=== PATIENT | female | born 1980 | race African-American/Black ===

== ENCOUNTER 2020-07-09 01:29 | Emergency (ER) | payer OTHER, BC ==
[~2020-07-09] VITALS: Ht 170.2 cm; Wt 88.2 kg
[~2020-07-09 01:29] MED LIST: DOXY-CAPS100 MG PO
[2020-07-09 05:10] VITALS: BP 126/80
== END 2020-07-09 05:10 | disposition home or self-care (01) | DRG 563 ==
LOC: ED 01:29
DX: S39.012A Strain of muscle, fascia and tendon of lower back, initial encounter (principal); S40.021A Contusion of right upper arm, initial encounter; V47.6XXA Car passenger injured in collision with fixed or stationary object in traffic accident, initial encounter

== ENCOUNTER 2021-04-17 07:13 | Emergency (ER) | payer BC ==
[~2021-04-17] VITALS: Ht 170.2 cm; Wt 80.0 kg
[2021-04-17 08:04] LABS: IMMATURE GRANULOCYTES 0.1 % (0.0-5.0); MEAN CELL VOLUME 84.1 fL CALC (80.0-100.0); MEAN CORPUSCULAR HGB 26.8 pG CALC (26.0-32.0); MEAN CORPUSCULAR HGB CONC 31.9 g/dL CAL (32.0-36.0); NEUT# 4.37 thou/uL (2.00-7.15); RED BLOOD COUNT 4.47 mill/uL (4.20-5.60); RED CELL DISTRI WIDTH 14.3 % (11.5-15.5)
[2021-04-17 08:05] LABS: HEMATOCRIT 37.6 % (37.0-47.0)
[2021-04-17 08:24] LABS: ANION GAP 12 (6-22 (CALC)); BUN 7 mg/dL (7-17); BUN/CREATININE RATIO 10 (12-20 (CALC)); CARBON DIOXIDE 25 mmol/l (22-30); CHLORIDE 105 mmol/l (95-108); CREATININE 0.7 mg/dL (0.5-1.0); GFR > 60 ML/MIN (>=60 (CALC)); GFR FOR AFR.AMER. > 60 ML/MIN (>=60 (CALC)); POTASSIUM 4.1 mmol/l (3.5-5.1); SGOT/AST 16 u/l (14-36); SODIUM 138 mmol/l (137-146); TOTAL PROTEIN 7.8 g/dL (6.3-8.2)
[2021-04-17 08:25] LABS: ALBUMIN 4.1 g/dL (3.2-5.0); ALKALINE PHOSPHATASE 96 u/l (38-126); BILIRUBIN, TOTAL 0.4 mg/dL (0.0-1.4)
[2021-04-17 08:39] LABS: BETA-HCG, QUANT(RESULT NUMBER) 1774 mIU/mL
[2021-04-17] MEDS ORDERED: PRENATAL MULTI1 CAP PO (09:28)
[2021-04-17 09:41] VITALS: BP 143/62
== END 2021-04-17 09:45 | disposition home or self-care (01) | DRG 833 ==
LOC: ED 07:13
PROVIDERS: Emergency Medicine
DX: O20.0 Threatened abortion (principal); Z3A.00 Weeks of gestation of pregnancy not specified

== ENCOUNTER 2022-10-22 19:37 | Emergency (ER) | payer BC ==
[~2022-10-22] VITALS: Ht 170.2 cm; Wt 93.9 kg
[~2022-10-22 19:37] MED LIST changes: +PRENATAL MULTI1 CAP PO
[2022-10-22 21:30] VITALS: BP 140/82
== END 2022-10-22 21:44 | disposition home or self-care (01) | DRG 156 ==
LOC: ED 19:37
PROC: 3E1B78Z Irrigation of Ear using Irrigating Substance, Via Natural or Artificial Opening (ICD-10-PCS; principal; 2022-10-22)
PROC: 3E1B78Z Irrigation of Ear using Irrigating Substance, Via Natural or Artificial Opening (ICD-10-PCS; 2022-10-22)
DX: H61.23 Impacted cerumen, bilateral (principal)